=== PATIENT | male | born 1960 | race Hispanic/Latino ===

== ENCOUNTER 2017-08-04 10:55 | Emergency (ER) | payer OTHER ==
[~2017-08-04] VITALS: Ht 170.2 cm; Wt 72.6 kg
[2017-08-04] MEDS ORDERED: HYDROCODONE/APAP 5MG-325MG TAB PO PRN (11:15)
--- NOTE | 2017-08-04 11:45 | Diagnostic Imaging Report ---
PROCEDURE:ELBOW RIGHT COMPLETE TECHNIQUE:Right elbow series INDICATION:Fall COMPARISON:None. FINDINGS: Right elbow limited regional skeleton are intact and in anatomic alignment. Moderate degenerative changes are present. No joint effusion. Intact soft tissues. No foreign bodies. CONCLUSION: Degenerative changes without evidence of acute traumatic injury. Dictated by: Cuco Haldey M.D. on 08/04/2017 at 11:45 Electronically approved by: Cuco Hadley M.D. on 08/04/2017 at 11:45
[2017-08-04 12:24] VITALS: BP 163/104
== END 2017-08-04 13:11 | disposition home or self-care (01) ==
LOC: ER 10:55
DX: S53.401A Unspecified sprain of right elbow, initial encounter (principal); W01.0XXA Fall on same level from slipping, tripping and stumbling without subsequent striking against object, initial encounter; Y99.0 Civilian activity done for income or pay
CPT/HCPCS: 99284